=== PATIENT | male | born 1980 | race African-American/Black ===

== ENCOUNTER 2017-11-02 08:33 | Emergency (ER) | payer BC ==
[~2017-11-02] VITALS: Ht 177.8 cm; Wt 74.7 kg
[~2017-11-02 08:33] MED LIST: BACTRIM DS1 TAB PO; KEFLEX500 MG OR; LORTAB5 PO; NO HOME MEDS; PENICILLN VK500 M1 OR; ULTRAM50 MG OR
[2017-11-02] MEDS ORDERED: ZOFRAN4 MG/TAB PO (09:19)
[2017-11-02] MEDS ORDERED: BENTYL10 MG PO (09:19)
[2017-11-02 09:41] VITALS: BP 130/70
== END 2017-11-02 09:47 | disposition home or self-care (01) | DRG 392 ==
LOC: ED 08:33
DX: K52.9 Noninfective gastroenteritis and colitis, unspecified (principal); R10.33 Periumbilical pain; R11.2 Nausea with vomiting, unspecified

== ENCOUNTER 2021-01-05 10:52 | Emergency (ER) | payer SELFPAY ==
[~2021-01-05] VITALS: Ht 177.8 cm; Wt 73.0 kg
[~2021-01-05 10:52] MED LIST changes: +BENTYL10 MG PO; +ZOFRAN4 MG/TAB PO
[2021-01-05] MEDS ORDERED: TRAMADOL HYDROC50 M1 PO (12:39)
[2021-01-05 12:41] VITALS: BP 112/72
== END 2021-01-05 12:47 | disposition home or self-care (01) | DRG 605 ==
LOC: ED 10:52
DX: S20.212A Contusion of left front wall of thorax, initial encounter (principal); F17.200 Nicotine dependence, unspecified, uncomplicated; W22.8XXA Striking against or struck by other objects, initial encounter; Y93.H2 Activity, gardening and landscaping; Y92.89 Other specified places as the place of occurrence of the external cause; Y99.0 Civilian activity done for income or pay

== ENCOUNTER 2021-04-13 00:36 | Emergency (ER) | payer SELFPAY ==
[~2021-04-13] VITALS: Ht 177.8 cm; Wt 81.9 kg
[~2021-04-13 00:36] MED LIST changes: +TRAMADOL HYDROC50 M1 PO
[2021-04-13] MEDS ORDERED: FLEXERIL5 M1 PO (02:31)
[2021-04-13] MEDS ORDERED: ULTRAM50 MG PO (02:31)
[2021-04-13] MEDS ORDERED: IBUPROFEN600 MG PO (02:31)
[2021-04-13 02:58] VITALS: BP 109/63
== END 2021-04-13 02:58 | disposition home or self-care (01) | DRG 552 ==
LOC: ED 00:36
DX: S33.5XXA Sprain of ligaments of lumbar spine, initial encounter (principal); M47.816 Spondylosis without myelopathy or radiculopathy, lumbar region; F17.210 Nicotine dependence, cigarettes, uncomplicated; X58.XXXA Exposure to other specified factors, initial encounter

== ENCOUNTER 2024-02-25 10:39 | Emergency (ER) | payer SELFPAY ==
[~2024-02-25] VITALS: Ht 177.8 cm; Wt 84.1 kg
[~2024-02-25 10:39] MED LIST changes: +FLEXERIL5 M1 PO; +IBUPROFEN600 MG PO; +ULTRAM50 MG PO
[2024-02-25 10:48] VITALS: BP 104/70
[2024-02-25] MEDS ORDERED: BACTRIM DS1 TAB PO (11:43)
[2024-02-25 11:58] VITALS: BP 104/70
== END 2024-02-25 12:08 | disposition home or self-care (01) | DRG 601 ==
LOC: ED 10:39
DX: N61.0 Mastitis without abscess (principal); F17.210 Nicotine dependence, cigarettes, uncomplicated

== ENCOUNTER 2024-04-01 15:32 | Emergency (ER) | payer SELFPAY ==
[~2024-04-01] VITALS: Ht 177.8 cm; Wt 81.0 kg
[2024-04-01 16:03] VITALS: BP 111/71
== END 2024-04-01 16:08 | disposition home or self-care (01) | DRG 563 ==
LOC: ED 15:32
PROC: 2W3KX1Z Immobilization of Left Finger using Splint (ICD-10-PCS; principal; 2024-04-01)
DX: S62.615A Displaced fracture of proximal phalanx of left ring finger, initial encounter for closed fracture (principal); F17.200 Nicotine dependence, unspecified, uncomplicated; X50.0XXA Overexertion from strenuous movement or load, initial encounter; Y93.89 Activity, other specified